=== PATIENT | male | born 1985 | race African-American/Black ===

== ENCOUNTER 2018-08-23 21:14 | Emergency (ER) | payer MEDICAID ==
[~2018-08-23] VITALS: Ht 165.1 cm; Wt 68.0 kg
[2018-08-24 02:16] VITALS: BP 128/76
== END 2018-08-24 02:18 | disposition home or self-care (01) ==
LOC: ER 21:14
DX: T59.91XA Toxic effect of unspecified gases, fumes and vapors, accidental (unintentional), initial encounter (principal); Y92.89 Other specified places as the place of occurrence of the external cause; F17.210 Nicotine dependence, cigarettes, uncomplicated; Z71.6 Tobacco abuse counseling
CPT/HCPCS: 71045; 82375; 99283; 99406

== ENCOUNTER 2019-07-28 13:39 | Emergency (ER) | payer MEDICAID, OTHER ==
[~2019-07-28] VITALS: Ht 162.6 cm; Wt 59.0 kg
[2019-07-28] MEDS ORDERED: IBUPROFEN 600MG TABLET PO STA (16:47)
[2019-07-28 18:00] VITALS: BP 160/111
== END 2019-07-28 18:41 | disposition home or self-care (01) ==
LOC: ER 13:39
DX: S63.592A Other specified sprain of left wrist, initial encounter (principal); M79.642 Pain in left hand; X58.XXXA Exposure to other specified factors, initial encounter; Y93.89 Activity, other specified; Y92.89 Other specified places as the place of occurrence of the external cause; Y99.8 Other external cause status
CPT/HCPCS: 29125; 73110; 73130; 99283